=== PATIENT | female | born 1940 | race Caucasian/White ===

== ENCOUNTER → 2020-05-23 11:33 | Outpatient (BNVA) | payer MEDICARE, OTHER, SELFPAY | PROVIDERS: Family Provider Family Medicine; PCP Family Medicine; Referring Provider Obstetrics & Gynecology; Visit Provider Urology | DX: C20 Malignant neoplasm of rectum (principal); N36.2 Urethral caruncle; R33.9 Retention of urine, unspecified; N31.9 Neuromuscular dysfunction of bladder, unspecified | CPT/HCPCS: 80053; 81003 ==

== ENCOUNTER 2020-06-12 14:51 | Outpatient (CLI) | payer MEDICARE, OTHER, SELFPAY ==
--- NOTE | 2020-06-12 15:00 | US_ITS ---
WS: [id number] RENAL ULTRASOUND HISTORY: BLADDER DYSFUNCTION COMPARISON: None available. TECHNIQUE: 2-D and color Doppler imaging of the kidney submitted. Right kidney: 8.7 cm x 5.0 cm x 4.0 cm. Kidney is low normal size. Normal echogenicity. No hydronephrosis or mass. Left kidney: 9.5 cm x 4.7 cm x 3.9 cm. Normal echogenicity with no hydronephrosis or mass. Aorta: Mild atherosclerosis. Scattered plaque with no aneurysm. Urinary Bladder: Nondistended. US/US renal BI* [id number] IMPRESSION: 1. Low normal size RIGHT kidney. 2. No hydronephrosis. 3. Mild atherosclerosis aorta. 4. Urinary bladder not identified.
[2020-06-12 16:47] LABS: Alanine Aminotransferase 10 U/L (0-33); Albumin Level 4.1 g/dL (3.5-5.2); Alkaline Phosphatase 209 IU/L (35-105); Anion Gap 14.6 (5-19); Aspartate Amino Transferase 19 U/L (0-32); Blood Urea Nitrogen 15 mg/dL (8-23); Carbon Dioxide 28 mmol/L (22-29); Chloride 102 mmol/L (98-107); Globulin 2.8 g/dL (1.3-4.6); Glucose 82 mg/dL (65-115); Osmolality Calculated 292 mOsm/kg (285-295); Potassium 3.6 mmol/L (3.5-5.1); Sodium 141 mmol/L (136-145); Total Bilirubin 0.4 mg/dL (0.15-1.2); Total Protein 6.9 g/dL (6.6-8.7)
== END 2020-06-12 14:52 | disposition home or self-care (01) ==
PROVIDERS: PCP Urology; Visit Provider Nurse Practitioner Family
DX: N31.9 Neuromuscular dysfunction of bladder, unspecified (principal); I70.0 Atherosclerosis of aorta
CPT/HCPCS: 36415; 76770; 80053; 81003

== ENCOUNTER 2020-12-11 13:14 | Outpatient (CLI) | payer MEDICARE, OTHER, SELFPAY ==
--- NOTE | 2020-12-11 13:30 | XR_ITS ---
WS: [id number] Temporomandibular joints. HISTORY: RIGHT TM joint blocks. Open and closed mouth imaging of the temporomandibular joints. No fractures or destruction of bone. Mild narrowing of the TM joints bilaterally. Slightly greater na rrowing of the RIGHT TM joint within the anterior osteophyte. There is very mild anterior translation during open mouth imaging of the RIGHT mandibular condyle. Slightly better anterior translation of t he LEFT mandibular condyle during open mouth imaging. Additional multilevel spondylitic changes throughout the cervical spine. XR/[place] [id number] IMPRESSION: 1. Moderate RIGHT AC joint osteoarthritis with mild anterior translation of th e condyle during open mouth imaging. 2. More normal movement of the LEFT mandibular condyle.
--- NOTE | 2020-12-11 13:30 | MR_ITS ---
WS: [id number] MRI TMJ JOINTS without CONTRAST. COMPARISON: None Multiplanar, multisequence imaging is performed without contrast. Moderate narrowing of the LEFT TM joint. There is a hooklike osteophyte extending anteriorly. There i s loss of the normal articular disc with bone upon bone. Very mild anterior translation with open madina th imaging. There is flattening of the femoral head condyle. More normal rounded appearance of the RIGHT mandibular condyle. Very small anterior mandibular condyl e osteophyte with only mild anterior subluxation with open-mouth imaging. No osteonecrosis. MR/MR TMJ wo con [id number] IMPRESSION: 1. Large oblique osteophyte from the LEFT mandibular condyle with no appreciab le articular disc identified. Limited anterior translation with open mouth imag ing. 2. Small RIGHT mandibular condyle osteophyte with limited but more normal ante rior translation with open mouth imaging.
== END 2020-12-11 13:15 | disposition home or self-care (01) ==
PROVIDERS: PCP Urology; Visit Provider Specialist
DX: M26.69 Other specified disorders of temporomandibular joint (principal); M19.09 Primary osteoarthritis, other specified site
CPT/HCPCS: 70330; 70336

== ENCOUNTER 2021-12-15 13:17 | Emergency (ER) | payer MEDICARE, OTHER, SELFPAY ==
[2021-12-15] VITALS (8 sets, daily range): BP systolic 146–196; BP diastolic 69–106; PULSE 68–86; RESP 16–18; TEMP 36.6–36.8; O2SAT 99–100; BMI 18.8
--- NOTE | 2021-12-15 13:29 | XRR_ITS ---
PROCEDURE INFORMATION: Exam: XR Chest Exam date and time: 12/15/2021 1:50 PM Age: 81 years old Clinical indication: Pain; Right-sided; Additional info: Cp TECHNIQUE: Imaging protocol: XR of the chest. Views: 1 view. COMPARISON: CR Chest 1 [place] [id number] 11/02/2018 5:41 AM FINDINGS: Lungs: Emphysematous changes. No consolidation. Pleural spaces: No pleural effusion. No pneumothorax. Heart/Mediastinum: No cardiomegaly. Bones/joints: Visualized osseous structures are intact. XR/XR chest 1V portable [id number] IMPRESSION: Sequela of COPD. No acute findings.
--- NOTE | 2021-12-15 13:30 | ECG_ITS ---
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 Measurements Intervals [place] Rate: 77 P: 50 AR: 115 QRS: -14 QRSD: 90 T: 19 QT: 392 QTc: 445 Interpretive Statements SINUS RHYTHM WITH OCCASIONAL PVCs Compared to ECG 11/02/2018 11:33:26 Sinus bradycardia no longer present ST (T wave) deviation no longer present Electronically Signed On 12-16-2021 8:05:29 CDT by Shaheen Rea M.D. [id number]
--- NOTE | 2021-12-15 13:44 | ED_ITS ---
HPI - Extremity Problem General: Chief complaint: Extremity Injury, Upper Stated complaint: High Blood Pressure, Pain in Right arm Time Seen by Provider: 12/15/21 13:28 Source: patient Mode of arrival: ambulatory Limitations: no limitations History of Present Illness: 81-year-old female states that she woke up this morning with his right neck pain. States she is some tenderness in her right trapezius area and has had some pain down her right arm. She states that she had checked her blood pressure and it was elevated to the 190s she had some mild blurry vision as well she denies any chest pain denies any shortness of breath denies any worsening improving factors did not take any medicines at home. Associated symptoms: Deny chest pain, fever(s) or rash Review of Systems Const: Denies: fever(s), chills, body aches or change in appetite Eyes: Denies: blurry vision or eye discomfort ENMT: Denies: throat pain or dental pain Card: Denies: chest pain Resp: Denies: dyspnea GI: Denies: abdominal pain, nausea, vomiting or diarrhea : Denies: dysuria Musc: Reports: neck pain and extremity pain Skin/Breast: Denies: rash Neuro: Denies: headache(s) Psych: Denies: depression Bar/Lymph: Denies: easy bruising All/Imm: Denies: urticaria PFSH ED PFSH: Medical History (Updated 12/15/21 @ 16:38 by Christopher Moore MD) Graves disease Diagnosed in 2011 and she states that she underwent radioactive iodine treatment and has had no problems since then. No pertinent past medical history Denies diabetes, asthma, hypertension, seizures, DVT/PE PCP: Dr. Deepak Erickson Rectal cancer 2017--states that she underwent surgery x2 with Dr. Gross followed by radiation at [facility]. She finally had everything removed later in 2017 and has a colostomy bag now. Surgical History Status post surgery 2017---underwent surgery for a rectal cyst. She stated that she went through a second surgery to have more of the cyst taken out and was diagnosed with cancer and sent to [place]. The end of 2017 she states that she had a third surgery for part of her colon and she states everything in her pelvis was taken out. Status post tubal ligation At the age of 34 via umbilicus Family History Sister Hypertension x 3 Heart disease Family/Other Hypertension grandson Denies family history of Colon cancer Ovarian cancer Diabetes Hyperlipidemia Breast cancer Uterine cancer Thyroid condition Social History Smoking and tobacco status: never smoked Alcohol intake: never Adopted: No Caregiver/support person: No Lives independently: Yes Marital status: / Current occupational status: employed Physical Exam Const: COMMON NORMALS: no acute distress, patient oriented x3 and healthy appearing HENMT: COMMON NORMALS: normocephalic and atraumatic HEAD & SCALP: normocephalic and atraumatic Eye: COMMON NORMALS: Equal, round and reactive pupils present and EOMs intact bilaterally PUPIL: Yes Equal, round and reactive pupils present Neck/C-Spine: COMMON NORMALS: full ROM and supple OTHER: Tenderness and spasms to right trapezius Chest: COMMONS NORMALS: normal inspection of the chest and normal palpation of entire chest wall Resp: COMMON NORMALS: normal respiratory effort, No retractions, No use of accessory muscles and clear to auscultation bilaterally AUSCULTATION: clear to auscultation bilaterally Cardio: COMMON NORMALS: regular rate, regular rhythm and No murmurs present (Cardio) RATE: regular rate RHYTHM: regular rhythm GI: COMMON NORMALS: Normal to inspection, nondistended, normoactive bowel sounds present, Soft to palpation, non-tender and no masses PALPATION: Yes Soft to palpation Extremity: COMMON NORMALS: normal to inspection and full ROM Neuro: COMMON NORMALS: patient oriented x3, moves all extremities and no focal motor deficits Psych: COMMON NORMALS: mental status grossly normal, Normal thought process present and cooperative THOUGHT PROCESS: Normal thought process present Skin: COMMON NORMALS: no rashes or lesions noted and no wounds GENERAL SKIN EXAM: no rashes or lesions noted Course Vital Signs: Vital signs: Vital Signs Temperature 98.2 F 12/15/21 13:27 Pulse Rate 84 12/15/21 15:30 Respiratory Rate 18 12/15/21 15:30 Blood Pressure 150/73 12/15/21 15:30 Pulse Oximetry 99 12/15/21 15:30 MDM - Extremity (Nontraumatic) Medical Decision Making Patient presents here with neck pain likely muscular in nature she does have a knot in the right neck with muscle spasms feels much improved here after Valium and icing we will place her on Robaxin she is to ice at home her troponins here normal blood pressures improved she has no signs of acute coronary syndrome she is to follow-up with PCP and return if worsening she understands agrees to plan. Lab Data : 12/15/21 13:50 12/15/21 13:50 Radiology Impressions Chest X-Ray 12/15/21 13:29 IMPRESSION: Sequela of COPD. No acute findings. Laboratory Results WBC 3.9 10^3/uL (4.0-10.0) L 12/15/21 13:50 RBC 3.67 10^6/uL (4.1-5.3) L 12/15/21 13:50 Hgb 11.9 g/dL (11.5-15.3) 12/15/21 13:50 Hct 37.9 % (37.0-47.0) 12/15/21 13:50 MCV 103.3 fl (81-99) H 12/15/21 13:50 MCH 32.4 pg (28.0-34.0) 12/15/21 13:50 MCHC 31.4 g/dL (30.0-36.0) 12/15/21 13:50 RDW 13.1 % (12.1-15.1) 12/15/21 13:50 Plt Count 196 10^3/cmm (130-400) 12/15/21 13:50 MPV 10.7 fL (7.4-10.4) H 12/15/21 13:50 Neut % (Auto) 72.9 % 12/15/21 13:50 Lymph % (Auto) 16.3 % 12/15/21 13:50 [place] % (Auto) 9.7 % 12/15/21 13:50 Eos % (Auto) 0.5 % 12/15/21 13:50 Baso % (Auto) 0.3 % 12/15/21 13:50 Neut # (Auto) 2.86 10^3/uL (1.8-7.7) 12/15/21 13:50 Lymph # (Auto) 0.6 10^3/uL (0.8-4.8) L 12/15/21 13:50 [place] # (Auto) 0.4 10^3/uL (0.2-0.9) 12/15/21 13:50 Eos # (Auto) 0.0 10^3/uL (0.0-0.8) 12/15/21 13:50 Baso # (Auto) 0.0 10^3/uL (0.0-0.1) 12/15/21 13:50 Nucleated RBC % (auto) 0 % 12/15/21 13:50 Nucleated RBCs # 0.0 /100WBC 12/15/21 13:50 PT 13.20 SECONDS (12.1-14.9) 12/15/21 14:00 INR 0.97 (0.8-1.2) 12/15/21 14:00 Sodium 137 mmol/L (136-145) 12/15/21 13:50 Potassium 4.7 mmol/L (3.5-5.1) 12/15/21 13:50 Chloride 98 mmol/L (98-107) 12/15/21 13:50 Carbon Dioxide 30 mmol/L (22-29) H 12/15/21 13:50 Anion Gap 13.7 (5-19) 12/15/21 13:50 BUN 11 mg/dL (8-23) 12/15/21 13:50 Creatinine 0.7 mg/dL (0.5-0.9) 12/15/21 13:50 GFR Calculation Not Reportable 12/15/21 13:50 Glucose 103 mg/dL (65-115) 12/15/21 13:50 Calculated Osmolality 284 mOsm/kg (285-295) L 12/15/21 13:50 Calcium 8.6 mg/dL (8.5-10.5) 12/15/21 13:50 Total Bilirubin 0.3 mg/dL (0.15-1.2) 12/15/21 13:50 AST 25 U/L (0-32) 12/15/21 13:50 ALT 11 U/L (0-33) 12/15/21 13:50 Alkaline Phosphatase 185 IU/L (35-105) H 12/15/21 13:50 Troponin T Baseline 12 ng/L (0-10) H 12/15/21 13:50 Troponin T 120 Minute 12.20 ng/L (0-10) H 12/15/21 15:30 Delta Troponin T 0.20 ABS# (0-10) 12/15/21 15:30 Total Protein 7.6 g/dL (6.6-8.7) 12/15/21 13:50 Albumin 4.0 g/dL (3.5-5.2) 12/15/21 13:50 Globulin 3.6 g/dL (1.3-4.6) 12/15/21 13:50 EKG Data EKG 1: I personally reviewed and interpreted this EKG as follows: EKG interpretation date: 12/15/21 EKG interpretation time: 13:43 Interpretation: nsr hr [address] or t wave abnormalities qrs 90 qtc 424 EKG 2: I personally reviewed and interpreted this EKG as follows: EKG interpretation date: 12/15/21 EKG interpretation time: 16:14 Interpretation: nsr hr [address] or t wave abnormalities qrs 88 qtc 422 Discharge Plan Discharge Patient Disposition: Home Clinical Impression: Neck pain on right side, Hypertension Condition: Stable Prescriptions: New methocarbamol 750 mg tablet 750 mg PO Q6H PRN (Reason: spasms) Qty: 20 0RF Naprosyn 500 mg tablet 500 mg PO BID PRN (Reason: pain) Qty: 20 0RF Discharge Orders: Discharge ED (Routine); Ordered 12/15/21 Ordered By: Christopher Moore Referrals: Jonnie Rosado MD [Primary Care Provider] - Discharge Diet: Advance as tolerated Discharge Activity: Resume usual activity Patient Instructions: Muscle Spasm (ED), Neck Pain (ED) Coding Level of Care Code ED Bobbin Fixer for Chg Fwd Exam Comprehensive
[2021-12-15] MEDS: morphine 4 mg/mL SDV 1 mL IVP (13:54)
[2021-12-15] MEDS: ondansetron 2 mg/ML SDV 2 mL 4 MG IVP (13:54)
[2021-12-15] MEDS: hyDRALAzine 20 mg/mL INJ 1 mL 10 MG IVP (13:55)
[2021-12-15 14:00] LABS: Basophils % 0.3 %; Eosinophils % 0.5 %; Hematocrit 37.9 % (37.0-47.0); Hemoglobin 11.9 g/dL (11.5-15.3); Lymphocytes # 0.6 10^3/uL (0.8-4.8); Lymphocytes % 16.3 %; Mean Corpuscular HGB Conc 31.4 g/dL (30.0-36.0); Mean Corpuscular Hemoglobin 32.4 pg (28.0-34.0); Mean Corpuscular Volume 103.3 fl (81-99); Mean Platelet Volume 10.7 fL (7.4-10.4); Monocytes # 0.4 10^3/uL (0.2-0.9); Monocytes % 9.7 %; Neutrophils # 2.86 10^3/uL (1.8-7.7); Neutrophils % 72.9 %; Nucleated Red Blood Cells % 0 %; Platelet Count 196 10^3/cmm (130-400); Red Blood Count 3.67 10^6/uL (4.1-5.3); Red Cell Distribution Width 13.1 % (12.1-15.1); White Blood Count 3.9 10^3/uL (4.0-10.0)
[2021-12-15 14:25] LABS: Alkaline Phosphatase 185 IU/L (35-105); Blood Urea Nitrogen 11 mg/dL (8-23); Calcium 8.6 mg/dL (8.5-10.5); Carbon Dioxide 30 mmol/L (22-29); Chloride 98 mmol/L (98-107); Globulin 3.6 g/dL (1.3-4.6); Glucose 103 mg/dL (65-115); Osmolality Calculated 284 mOsm/kg (285-295); Sodium 137 mmol/L (136-145); Total Bilirubin 0.3 mg/dL (0.15-1.2); Total Protein 7.6 g/dL (6.6-8.7)
[2021-12-15 14:27] LABS: Anion Gap 13.7 (5-19)
[2021-12-15 14:28] LABS: Alanine Aminotransferase 11 U/L (0-33); Aspartate Amino Transferase 25 U/L (0-32); Potassium 4.7 mmol/L (3.5-5.1)
[2021-12-15 14:32] LABS: INR 0.97 (0.8-1.2)
[2021-12-15 14:43] LABS: Troponin(5th) Baseline 12 ng/L (0-10)
[2021-12-15] MEDS: diazePAM 2 mg Tablet PO (15:09)
--- NOTE | 2021-12-15 15:30 | ECG_ITS ---
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 Measurements Intervals [place] Rate: 82 P: 52 AK: 103 QRS: 14 QRSD: 88 T: 27 QT: 383 QTc: 449 Interpretive Statements SINUS RHYTHM WITH SHORT AK INTERVAL MODERATE ST DEPRESSION [0.05+ mV ST DEPRESSION] Compared to ECG 12/15/2021 13:43:19 Short AK interval now present ST (T wave) deviation now present Electronically Signed On 12-16-2021 8:06:22 CDT by Shaheen Rea M.D. [id number]
--- NOTE | 2021-12-15 15:33 | PC.NURSE ---
Ice pack to R shoulder
== END 2021-12-15 16:53 | disposition home or self-care (01) ==
PROVIDERS: Emergency Provider Emergency Medicine; PCP Urology
DX: M54.2 Cervicalgia (principal); I10 Essential (primary) hypertension; M79.601 Pain in right arm
CPT/HCPCS: 71045; 80053; 84484; 85025; 85610; 93005; 96374; 96375; 99285; J0360; J2270; J2405

== ENCOUNTER 2022-03-04 11:42 | Outpatient (CLI) | payer MEDICARE, OTHER, SELFPAY ==
--- NOTE | 2022-03-04 11:54 | CT_ITS ---
WS: [id number] CT CHEST, ABDOMEN AND PELVIS WITH CONTRAST. HISTORY: COUGH/ABNORMAL WEIGHT LOSS/RECTAL CANCER TECHNIQUE: Contiguous 5 mm axial imaging performed through the chest, abdomen and pelvis with IV cont rast, oral contrast has been provided. Coronal and sagittal reformats chest. Coronal and sagittal ref ormats through the abdomen and pelvis. All CT scans at [facility] use at least one of these d ose optimization techniques: automated exposure control; mA and/or kV adjustment per patient size (in cludes targeted exams where dose is matched to clinical indication); or iterative reconstruction. CONTRAST: Omnipaque 350; 75 mL IV. DLP: 1015.37 mGy.cm COMPARISON: 04/29/[address]: Linear atelectasis or scar RIGHT upper lobe. Ovoid 5 mm nodule in the RIGHT lower lobe. Thi s was probably present on the PET/CT from 2016. No mass. No pericardial or pleural effusions. Mild bi atrial enlargement. Atherosclerosis aorta. Normal size pulmonary artery. Increasing mediastinal and h ilar lymph nodes. RIGHT hilar lymph node or cluster of lymph nodes measures 16 x 13 mm. Subcarinal ly mph node with a maximum diameter of 13 mm. Smaller hilar lymph nodes. Intralobular RIGHT lower lobe l ymph nodes are mildly enlarged. No central pulmonary emboli. Abdomen CT: Liver is normal size. Low-attenuation mass in the LEFT lobe liver measures 2.0 x 2.1 cm a nd was not present on the prior study. No additional masses. Normal portal vein. Gallbladder is negat steven. Normal size spleen with granulomata. Negative pancreas. No adrenal mass. Neither kidney is obstr ucted. No renal mass. Atherosclerotic plaque throughout the aorta. Minimally distended stomach with contrast. No small bowel obstruction. Diffuse colonic retention. Ove rlapping loops of colon. LEFT lower quadrant colostomy. Pelvic CT: Well-distended urinary bladder. No adenopathy. Advanced degenerative changes within the thoracic and lumbar spines. No osteoblastic or osteolytic miracle ne disease is identified. CT/CT chest abd pel w con* IMPRESSION: 1. Hilar and subcarinal lymphadenopathy. Metastatic disease not excluded. 2. RIGHT lower lobe 5 mm nodule was probably present on the prior PET/CT. 3. LEFT lower quadrant colostomy. 4. New low-attenuation nodule LEFT lobe of the liver measures 2.0 x 2.1 cm. As this was not present in 2017 this is most likely a metastatic lesion. 5. Recommend follow-up PET/CT imaging to better evaluate the enlarged lymph no bebeto in the chest and the liver lesion.
[2022-03-04] MEDS: barium sulfate 450 mL Oral Susp PO (12:30)
[2022-03-04 13:39] LABS: Blood Urea Nitrogen 14 mg/dL (8-23)
[2022-03-04] MEDS: iohexol 350 mg/mL 100 mL Btl IV (13:46)
== END 2022-03-04 11:43 | disposition home or self-care (01) ==
LOC: RAD 11:43
PROVIDERS: PCP Urology; Visit Provider Family Medicine
DX: R05.9 Cough, unspecified (principal); R63.4 Abnormal weight loss; C20 Malignant neoplasm of rectum; R91.1 Solitary pulmonary nodule; Z93.3 Colostomy status
CPT/HCPCS: 71260; 74177; 82565; 84520

== ENCOUNTER 2022-04-22 12:28 | Oncology outpatient (recurring) (ONCR) | payer MEDICARE, OTHER, SELFPAY ==
[2022-04-09 09:42] LABS: Basophils % 0.3 %; Hematocrit 38.3 % (37.0-47.0); Hemoglobin 12.1 g/dL (11.5-15.3); Lymphocytes # 0.7 10^3/uL (0.8-4.8); Lymphocytes % 23.6 %; Mean Corpuscular HGB Conc 31.6 g/dL (30.0-36.0); Mean Corpuscular Hemoglobin 31.7 pg (28.0-34.0); Mean Corpuscular Volume 100.3 fl (81-99); Mean Platelet Volume 10.7 fL (7.4-10.4); Monocytes # 0.3 10^3/uL (0.2-0.9); Monocytes % 11.5 %; Neutrophils # 1.87 10^3/uL (1.8-7.7); Neutrophils % 63.3 %; Nucleated Red Blood Cells % 0 %; Platelet Count 174 10^3/cmm (130-400); Red Blood Count 3.82 10^6/uL (4.1-5.3); Red Cell Distribution Width 14.6 % (12.1-15.1)
[2022-04-09 10:21] LABS: Alanine Aminotransferase 9 U/L (0-33); Albumin Level 4.2 g/dL (3.5-5.2); Alkaline Phosphatase 213 U/L (35-105); Anion Gap 13.7 (5-19); Aspartate Amino Transferase 20 U/L (0-32); Blood Urea Nitrogen 13 mg/dL (8-23); Calcium 9.6 mg/dL (8.5-10.5); Carbon Dioxide 30 mmol/L (22-29); Chloride 101 mmol/L (98-107); Globulin 3.3 g/dL (1.3-4.6); Glucose 92 mg/dL (65-115); Osmolality Calculated 290 mOsm/kg (285-295); Potassium 4.7 mmol/L (3.5-5.1); Sodium 140 mmol/L (136-145); Thyroid Stimulating Hormone 1.17 uIU/mL (0.27-4.20); Total Bilirubin 0.6 mg/dL (0.15-1.2); Total Protein 7.5 g/dL (6.6-8.7)
--- NOTE | 2022-04-16 10:11 | N.ONRAD NP_ITS ---
Radiation Oncology Consultation Patient Name: Marisol Reddy Date of : 1940 Date of Service: 04/16/2022 Attending Physician: Travis Black M.D. Marisol Reddy was seen in consultation this morning at the request of Santi Jarquin M.D. for consideration of stereotactic ablative body radiotherapy and the management of metastatic rectal cancer. 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 Definitive chemoradiotherapy consisting of mitomycin and Xeloda and pelvic radiotherapy to a cumulative dose of 55.8 Gy was prescribed between the dates of November 29, 2015 through January 02, 2016. A colonoscopy completed on account of anal pain in January 2017 identified an abscess with biopsies confirming adenocarcinoma. An abdominoperineal resection with en bloc partial vaginectomy and colostomy was performed by Yousuf Barnes M.D. A thoracoabdominopelvic CT scan ordered on March 04, 2022 in consideration of a cough and weight loss described a 5 mm right lower lobe nodule, right hilar lymphadenopathy measuring 1.6 cm x 1.3 cm, a 1.3 cm subcarinal lymph node, and a 2 cm x 2.1 cm low-attenuation mass in the left lobe of the liver. A CT-guided needle biopsy of the liver mass obtained on March 26, 2022 confirmed metastatic adenocarcinoma consistent with colorectal primary. A PET scan requested on April 05, 2022 revealed a single foci of hypermetabolic activity within the left hepatic lobe (SUV 13.7). The patient was evaluated for stereotactic ablative body radiotherapy for the hepatic metastasis. I discussed with Ms. Reddy the role of stereotactic ablative body radiotherapy for the management of recurrent lung cancer. I also reviewed the SABR-COMET trial that enrolled patients with a controlled primary malignancy and 1-5 metastatic lesions to SBRT or palliative standard of care. This radiotherapy modality provided a 22-month median overall survival benefit in comparison to palliative management. I anticipate an ultra-hypofractionated course of stereotactic radiotherapy. A 4-dimensional computed tomographic radiotherapy planning will be acquired to delineate the gross tumor volume preceding implementation of treatment. Potential toxicities of stereotactic body radiotherapy to the liver were reviewed. The patient has verbalized understanding and would like to proceed as recommended. Her medical treatment plan was discussed with Santi Jarquin M.D. Signed by: Dr. Travis Black 04/16/2022 10:10:48 AM
--- NOTE | 2022-04-22 | CT_ITS ---
Radiation Therapy Planning CT images; total exam DLP: 847.29 mGy-cm MTDD
[2022-04-22] MEDS: iodixanol 320 mg/mL 100mL Btl (RAD THERAPY ONLY) IV (12:36)
== END 2022-04-25 23:59 | disposition home or self-care (01) ==
PROVIDERS: Internal Medicine Hematology & Oncology; PCP Urology; Visit Provider Radiology Radiation Oncology
DX: Z51.0 Encounter for antineoplastic radiation therapy (principal); C20 Malignant neoplasm of rectum; C78.01 Secondary malignant neoplasm of right lung; C77.8 Secondary and unspecified malignant neoplasm of lymph nodes of multiple regions; C78.7 Secondary malignant neoplasm of liver and intrahepatic bile duct
CPT/HCPCS: 36415; 77300; 77301; 77334; 77338; 77470; 80053; 84443; 85025; 99204; 99205; Q9967

== ENCOUNTER 2022-05-02 11:51 | Oncology outpatient (recurring) (ONCR) | payer MEDICARE, OTHER, SELFPAY ==
--- NOTE | 2022-04-30 15:05 | ONCRAD TMN_ITS ---
SABR Treatment Management Note Patient Name: Marisol Reddy Date of : 1940 Date of Service: 04/30/2022 Attending Physician: Travis Black M.D. Marisol Reddy is an 81 year-old white female diagnosed with metastatic rectal cancer. 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 Definitive chemoradiotherapy consisting of mitomycin and Xeloda and pelvic radiotherapy to a cumulative dose of 55.8 Gy was prescribed between the dates of November 29, 2015 through January 02, 2016. A colonoscopy completed on account of anal pain in January 2017 identified an abscess with biopsies confirming adenocarcinoma. An abdominoperineal resection with en bloc partial vaginectomy and colostomy was performed by Yousuf Barnes M.D. A thoracoabdominopelvic CT scan ordered on March 04, 2022 in consideration of a cough and weight loss described a 5 mm right lower lobe nodule, right hilar lymphadenopathy measuring 1.6 cm x 1.3 cm, a 1.3 cm subcarinal lymph node, and a 2 cm x 2.1 cm low-attenuation mass in the left lobe of the liver. A CT-guided needle biopsy of the liver mass obtained on March 26, 2022 confirmed metastatic adenocarcinoma consistent with colorectal primary. A PET scan requested on April 05, 2022 revealed a single foci of hypermetabolic activity within the left hepatic lobe (SUV 13.7). The patient has received 40 Gy of a prescribed 60 Virgen (SABR) delivered with an intensity modulated radiotherapy plan utilizing a step and shoot treatment technique. Upon review of systems, she described pain during deep inspiration. On physical examination, the patient weighed 105 lbs. Her temperature was 97.4 ???F and the blood pressure was 151/76 mmHg. The pulse was 59 bpm and her respiratory rate was 18. There was no erythema within the treatment russell. Continue stereotactic ablative body radiotherapy as prescribed. Recommend NSAID for probable costochondritis related to SABR. Signed by: Dr. Travis Black 04/30/2022 3:04:02 PM
[2022-05-01 13:27] LABS: Basophils % 0.4 %; Eosinophils % 0.9 %; Hematocrit 36.2 % (37.0-47.0); Hemoglobin 11.3 g/dL (11.5-15.3); Lymphocytes # 0.5 10^3/uL (0.8-4.8); Lymphocytes % 22.3 %; Mean Corpuscular HGB Conc 31.2 g/dL (30.0-36.0); Mean Corpuscular Hemoglobin 31.9 pg (28.0-34.0); Mean Corpuscular Volume 102.3 fl (81-99); Mean Platelet Volume 10.7 fL (7.4-10.4); Monocytes # 0.3 10^3/uL (0.2-0.9); Monocytes % 11.8 %; Neutrophils # 1.47 10^3/uL (1.8-7.7); Neutrophils % 64.2 %; Nucleated Red Blood Cells % 0 %; Platelet Count 141 10^3/cmm (130-400); Red Blood Count 3.54 10^6/uL (4.1-5.3); Red Cell Distribution Width 14.6 % (12.1-15.1); White Blood Count 2.3 10^3/uL (4.0-10.0)
[2022-05-01 13:48] LABS: Alanine Aminotransferase 10 U/L (0-33); Albumin Level 3.9 g/dL (3.5-5.2); Alkaline Phosphatase 191 U/L (35-105); Anion Gap 10.9 (5-19); Aspartate Amino Transferase 19 U/L (0-32); Blood Urea Nitrogen 17 mg/dL (8-23); Calcium 9.2 mg/dL (8.5-10.5); Carbon Dioxide 29 mmol/L (22-29); Chloride 104 mmol/L (98-107); Globulin 3.3 g/dL (1.3-4.6); Glucose 113 mg/dL (65-115); Osmolality Calculated 292 mOsm/kg (285-295); Potassium 3.9 mmol/L (3.5-5.1); Sodium 140 mmol/L (136-145); Total Bilirubin 0.5 mg/dL (0.15-1.2); Total Protein 7.2 g/dL (6.6-8.7)
--- NOTE | 2022-05-02 11:57 | N.ONRD TS_ITS ---
SABR Treatment Summary Patient Name: Marisol Reddy Date of : 1940 Date of Service: 05/02/2022 Attending Physician: Travis Black M.D. Marisol Reddy has completed stereotactic ablative body radiotherapy for the management of metastatic rectal cancer. 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 Definitive chemoradiotherapy consisting of mitomycin and Xeloda and pelvic radiotherapy to a cumulative dose of 55.8 Gy was prescribed between the dates of November 29, 2015 through January 02, 2016. A colonoscopy completed on account of anal pain in January 2017 identified an abscess with biopsies confirming adenocarcinoma. An abdominoperineal resection with en bloc partial vaginectomy and colostomy was performed by Yousuf Barnes M.D. A thoracoabdominopelvic CT scan ordered on March 04, 2022 in consideration of a cough and weight loss described a 5 mm right lower lobe nodule, right hilar lymphadenopathy measuring 1.6 cm x 1.3 cm, a 1.3 cm subcarinal lymph node, and a 2 cm x 2.1 cm low-attenuation mass in the left lobe of the liver. A CT-guided needle biopsy of the liver mass obtained on March 26, 2022 confirmed metastatic adenocarcinoma consistent with colorectal primary. A PET scan requested on April 05, 2022 revealed a single foci of hypermetabolic activity within the left hepatic lobe (SUV 13.7). SABR was delivered between the dates of April 28, 2022 through May 02, 2022. A prescribed dose of 60 Gy was delivered in three fractions encompassing 5 elapsed days. The left liver lobe lesion was treated utilizing an intensity modulated radiotherapy plan with a step and shoot treatment technique. The plan required seven co-planar russell and two non-coplanar ports. The coplanar russell were designed using gantry angles of 0???, 20???, 40???, 60???, 300???, 320???, and 340??? and were associated with a collimator rotation of 0???. The field sizes spanned between 5.3 cm x 6.3 cm to 6.1 cm x 5.5 cm. The planned SSD measured between a minimum of 87.1 cm to a maximum of 92.1 cm. The delivered monitor units for the referenced gantry angles were 444 MU, 761 MU, 624 MU, 789 MU, 1018 MU, 766 MU, and 756 MU, An additional two non-coplanar ports were arranged with gantry angles of 25??? and 335??? and a collimator rotation of 0???. The couch angle was 90???. The non-coplanar portal russell measured 6.8 cm x 5 cm and 7.1 cm x 5 cm with SSD measurements of 95.5 cm and 95.6 cm. The non-coplanar ports administered 686 MU and 624 MU. Low energy photons were prescribed. All treatments were performed with the [employer] linear accelerator and an isocentric technique. The dose was calculated by Anisotropic Analytic Algorithm with the plan normalized to deliver 100% of the prescription dose to 95% of the planning target volume. Signed by: Dr. Travis Black 05/02/2022 11:55:40 AM
== END 2022-05-26 23:59 | disposition home or self-care (01) ==
PROVIDERS: Internal Medicine Hematology & Oncology; PCP Urology; Visit Provider Radiology Radiation Oncology
DX: Z51.0 Encounter for antineoplastic radiation therapy (principal); C20 Malignant neoplasm of rectum; C78.7 Secondary malignant neoplasm of liver and intrahepatic bile duct
CPT/HCPCS: 36415; 77373; 77435; 80053; 85025; 99214

== ENCOUNTER 2022-06-21 17:31 | Emergency (ER) | payer MEDICARE, OTHER, SELFPAY ==
[2022-06-21 18:03] VITALS: BP 180/78; PULSE 55; RESP 18; TEMP 36.4; O2SAT 97
[2022-06-21 18:53] LABS: Basophils % 0.4 %; Hematocrit 38.6 % (37.0-47.0); Hemoglobin 12.3 g/dL (11.5-15.3); Lymphocytes # 0.4 10^3/uL (0.8-4.8); Lymphocytes % 8.7 %; Mean Corpuscular HGB Conc 31.9 g/dL (30.0-36.0); Mean Corpuscular Hemoglobin 32.9 pg (28.0-34.0); Mean Corpuscular Volume 103.2 fl (81-99); Mean Platelet Volume 10.7 fL (7.4-10.4); Monocytes # 0.4 10^3/uL (0.2-0.9); Monocytes % 7.9 %; Neutrophils # 4.17 10^3/uL (1.8-7.7); Neutrophils % 82.4 %; Nucleated Red Blood Cells % 0 %; Platelet Count 146 10^3/cmm (130-400); Red Blood Count 3.74 10^6/uL (4.1-5.3); Red Cell Distribution Width 13.7 % (12.1-15.1); White Blood Count 5.1 10^3/uL (4.0-10.0)
[2022-06-21 19:17] LABS: Alanine Aminotransferase 17 U/L (0-33); Albumin Level 4.1 g/dL (3.5-5.2); Alkaline Phosphatase 220 U/L (35-105); Anion Gap 15.1 (5-19); Aspartate Amino Transferase 28 U/L (0-32); Blood Urea Nitrogen 14 mg/dL (8-23); Calcium 9.6 mg/dL (8.5-10.5); Carbon Dioxide 26 mmol/L (22-29); Chloride 94 mmol/L (98-107); Globulin 3.8 g/dL (1.3-4.6); Glucose 149 mg/dL (65-115); Lipase 37 U/L (13-60); Osmolality Calculated 275 mOsm/kg (285-295); Potassium 4.1 mmol/L (3.5-5.1); Sodium 131 mmol/L (136-145); Total Bilirubin 0.5 mg/dL (0.15-1.2); Total Protein 7.9 g/dL (6.6-8.7)
[2022-06-21 19:19] LABS: Lactate (Lactic Acid level) 1.3 mmol/L (0.5-2.2)
--- NOTE | 2022-06-21 19:59 | CTR_ITS ---
PROCEDURE INFORMATION: Exam: CT Abdomen And Pelvis With Contrast Exam date and time: 06/21/2022 8:59 PM Age: 81 years old Clinical indication: Abdominal pain; Generalized; Prior surgery; Surgery date: 6+ months; Surgery type: Colostomy for rectal CA. Just finished radiation for liver mets per PT; Patient HX: Colorectal CA with livermets per PT; Additional info: Abd pain TECHNIQUE: Imaging protocol: Computed tomography of the abdomen and pelvis with contrast. Radiation optimization: All CT scans at this facility use at least one of these dose optimization techniques: automated exposure control; mA and/or kV adjustment per patient size (includes targeted exams where dose is matched to clinical indication); or iterative reconstruction. Contrast material: OMNI 350; Contrast volume: 70 ml; Contrast route: INTRAVENOUS (IV); COMPARISON: CT chest abd pel w con* 03/04/2022 1:40 PM RADIATION DOSE METRICS: Total DLP (mGy-cm): 296.92 FINDINGS: Lungs: Scarring and/or atelectasis in the medial segment of the right middle lobe. Bibasilar discoid atelectasis and/or scarring. Heart: Severe aortic valve calcification. Liver: Decreased size of 1.5 cm low-density in the medial segment left liver consistent with decreased size of liver metastasis. Gallbladder and bile ducts: Normal. No calcified stones. No ductal dilation. Pancreas: Normal. No ductal dilation. Spleen: Calcified splenic granulomas. Stable one or more accessory splenules. Adrenal glands: Normal. No mass. Kidneys and ureters: Left renal hypodensity measuring < 1.0 cm , too small to further characterize. Stomach and bowel: Stable resection of the rectosigmoid colon with continued left lower quadrant colostomy. Multiple dilated loops of small bowel in the pelvis up to 3 cm in diameter consistent with enteritis versus ileus versus occult obstruction with no obvious transition point. Appendix: No evidence of appendicitis. Intraperitoneal space: Unremarkable. No free air. No significant fluid collection. Vasculature: Calcification of the abdominal aorta and/or iliac arteries consistent with atherosclerotic vessel disease. Lymph nodes: Calcified right hilar nodes and/or mediastinal nodes and/or lung granulomas consistent with old granulomatous disease. Urinary bladder: Unremarkable as visualized. Reproductive: Unremarkable as visualized. Bones/joints: Unremarkable. No acute fracture. Soft tissues: Unremarkable. CT/CT abdomen pelvis w con* [id number] IMPRESSION: 1. Decreased size of 1.5 cm low-density in the medial segment left liver consistent with decreased size of liver metastasis. 2. Stable resection of the rectosigmoid colon with continued left lower quadrant colostomy. 3. Multiple dilated loops of small bowel in the pelvis up to 3 cm in diameter consistent with enteritis versus ileus versus occult obstruction with no obvious transition point.
[2022-06-21 20:01] VITALS: BP 188/79; PULSE 55; RESP 16; O2SAT 100
--- NOTE | 2022-06-21 20:10 | ECG_ITS ---
[facility] Test Date: 2022-06-21 Pat Name: Marisol Reddy Department: Room: Gender: Female [employer]: : 1940 Requested By: Christopher Moore Order Number: [id number] Brian MD: Sunny Mera M.D. 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 [email or web address]
--- NOTE | 2022-06-21 20:11 | ED_ITS ---
HPI - Abdominal Pain General: Chief Complaint: Abdominal Pain Stated Complaint: has cancer and stomach is hurting Time Seen by Provider: 06/21/22 19:50 Source: patient Mode of arrival: ambulatory Limitations: no limitations History of Present Illness: 81-year-old female states she has been having diffuse abdominal pain over the last week. She states the pain is been sharp in nature she rates today 7 out of 10 she denies any vomiting denies any diarrhea. She denies any radiation of pain denies any chest pain she had no fevers no diarrhea. Associated Symptoms: Reports nausea; Denies chills, dysuria and fever(s) Review of Systems Const: Denies: fever(s), chills, body aches or change in appetite Eyes: Denies: blurry vision or eye discomfort ENMT: Denies: throat pain or dental pain Card: Denies: chest pain Resp: Denies: dyspnea GI: Reports: abdominal pain and nausea : Denies: dysuria Musc: Denies: neck pain or back pain Skin/Breast: Denies: rash Neuro: Denies: headache(s) Psych: Denies: depression Bar/Lymph: Denies: easy bruising All/Imm: Denies: urticaria PFSH ED PFSH: Medical History Graves disease Diagnosed in 2011 and she states that she underwent radioactive iodine treatment and has had no problems since then. No pertinent past medical history Denies diabetes, asthma, hypertension, seizures, DVT/PE PCP: Dr. Deepak Erickson Rectal cancer 2017--states that she underwent surgery x2 with Dr. Gross followed by radiation at [facility]. She finally had everything removed later in 2017 and has a colostomy bag now. Surgical History Status post surgery 2017---underwent surgery for a rectal cyst. She stated that she went through a second surgery to have more of the cyst taken out and was diagnosed with cancer and sent to [place]. The end of 2017 she states that she had a third surgery for part of her colon and she states everything in her pelvis was taken out. Status post tubal ligation At the age of 34 via umbilicus Family History Sister Hypertension x 3 Heart disease Family/Other Hypertension grandson Denies family history of Colon cancer Ovarian cancer Diabetes Hyperlipidemia Breast cancer Uterine cancer Thyroid condition Social History Smoking and tobacco status: never smoked Alcohol intake: never Adopted: No Caregiver/support person: No Lives independently: Yes Marital status: / Current occupational status: employed Physical Exam Const: COMMON NORMALS: no acute distress, patient oriented x3 and healthy appearing HENMT: COMMON NORMALS: normocephalic and atraumatic HEAD & SCALP: normocephalic and atraumatic Eye: COMMON NORMALS: Equal, round and reactive pupils present and EOMs intact bilaterally PUPIL: Yes Equal, round and reactive pupils present Neck/C-Spine: COMMON NORMALS: full ROM and supple Chest: COMMONS NORMALS: normal inspection of the chest and normal palpation of entire chest wall Resp: COMMON NORMALS: normal respiratory effort, No retractions, No use of accessory muscles and clear to auscultation bilaterally AUSCULTATION: clear to auscultation bilaterally Cardio: COMMON NORMALS: regular rate, regular rhythm and No murmurs present (Cardio) RATE: regular rate RHYTHM: regular rhythm GI: COMMON NORMALS: Normal to inspection, nondistended, normoactive bowel sounds present, Soft to palpation and no masses PALPATION: Yes Soft to palpation OTHER: diffuse tenderness Extremity: COMMON NORMALS: normal to inspection and full ROM Neuro: COMMON NORMALS: patient oriented x3, moves all extremities and no focal motor deficits Psych: COMMON NORMALS: mental status grossly normal, Normal thought process present and cooperative THOUGHT PROCESS: Normal thought process present Skin: COMMON NORMALS: no rashes or lesions noted and no wounds GENERAL SKIN EXAM: no rashes or lesions noted Course Vital Signs: Vital signs: Vital Signs Temperature 97.5 F L 06/21/22 18:03 Pulse Rate 68 06/21/22 21:30 Respiratory Rate 16 06/21/22 21:30 Blood Pressure 155/68 06/21/22 21:30 Pulse Oximetry 96 06/21/22 21:30 Oxygen Delivery Me thod 06/21/22 18:03 MDM - Abdominal Pain Medical Decision Making Patient presents with abdominal pain she feels much improved here exam at discharge benign blood works normal CT is normal she has no signs of small bowel obstruction we will prescribe her pain meds along with nausea medicine. Lab Data 06/21/22 18:40 06/21/22 18:40 Labs/Radiology: Radiology Impressions Abdomen/Pelvis CT 06/21/22 19:59 IMPRESSION: 1. Decreased size of 1.5 cm low-density in the medial segment left liver consistent with decreased size of liver metastasis. 2. Stable resection of the rectosigmoid colon with continued left lower quadrant colostomy. 3. Multiple dilated loops of small bowel in the pelvis up to 3 cm in diameter consistent with enteritis versus ileus versus occult obstruction with no obvious transition point. Laboratory Results WBC 5.1 10^3/uL (4.0-10.0) 06/21/22 18:40 RBC 3.74 10^6/uL (4.1-5.3) L 06/21/22 18:40 Hgb 12.3 g/dL (11.5-15.3) 06/21/22 18:40 Hct 38.6 % (37.0-47.0) 06/21/22 18:40 MCV 103.2 fl (81-99) H 06/21/22 18:40 MCH 32.9 pg (28.0-34.0) 06/21/22 18:40 MCHC 31.9 g/dL (30.0-36.0) 06/21/22 18:40 RDW 13.7 % (12.1-15.1) 06/21/22 18:40 Plt Count 146 10^3/cmm (130-400) 06/21/22 18:40 MPV 10.7 fL (7.4-10.4) H 06/21/22 18:40 Neut % (Auto) 82.4 % 06/21/22 18:40 Lymph % (Auto) 8.7 % 06/21/22 18:40 [place] % (Auto) 7.9 % 06/21/22 18:40 Eos % (Auto) 0.0 % 06/21/22 18:40 Baso % (Auto) 0.4 % 06/21/22 18:40 Neut # (Auto) 4.17 10^3/uL (1.8-7.7) 06/21/22 18:40 Lymph # (Auto) 0.4 10^3/uL (0.8-4.8) L 06/21/22 18:40 [place] # (Auto) 0.4 10^3/uL (0.2-0.9) 06/21/22 18:40 Eos # (Auto) 0.0 10^3/uL (0.0-0.8) 06/21/22 18:40 Baso # (Auto) 0.0 10^3/uL (0.0-0.1) 06/21/22 18:40 Nucleated RBC % (auto) 0 % 06/21/22 18:40 Nucleated RBCs # 0.0 /100WBC 06/21/22 18:40 Sodium 131 mmol/L (136-145) L 06/21/22 18:40 Potassium 4.1 mmol/L (3.5-5.1) 06/21/22 18:40 Chloride 94 mmol/L (98-107) L 06/21/22 18:40 Carbon Dioxide 26 mmol/L (22-29) 06/21/22 18:40 Anion Gap 15.1 (5-19) 06/21/22 18:40 BUN 14 mg/dL (8-23) 06/21/22 18:40 Creatinine 0.7 mg/dL (0.5-0.9) 06/21/22 18:40 GFR Calculation Not Reportable 06/21/22 18:40 Glucose 149 mg/dL (65-115) H 06/21/22 18:40 Calculated Osmolality 275 mOsm/kg (285-295) L 06/21/22 18:40 Lactate 1.3 mmol/L (0.5-2.2) 06/21/22 18:40 Calcium 9.6 mg/dL (8.5-10.5) 06/21/22 18:40 Total Bilirubin 0.5 mg/dL (0.15-1.2) 06/21/22 18:40 AST 28 U/L (0-32) 06/21/22 18:40 ALT 17 U/L (0-33) 06/21/22 18:40 Alkaline Phosphatase 220 U/L (35-105) H 06/21/22 18:40 Total Protein 7.9 g/dL (6.6-8.7) 06/21/22 18:40 Albumin 4.1 g/dL (3.5-5.2) 06/21/22 18:40 Globulin 3.8 g/dL (1.3-4.6) 06/21/22 18:40 Lipase 37 U/L (13-60) 06/21/22 18:40 Discharge Plan Discharge Patient Disposition: Home Clinical Impression: Abdominal pain Qualifiers: Abdominal location: generalized Qualified Code(s): R10.84 - Generalized abdominal pain Condition: Stable Prescriptions: New hydrocodone-acetaminophen 5-325 mg tablet 1 tab PO Q6H PRN (Reason: pain) Qty: 14 0RF ondansetron 4 mg tablet,disintegrating 4 mg PO Q6H PRN (Reason: nausea and vomiting) Qty: 14 0RF Discharge Orders: Discharge ED (Routine); Ordered 06/21/22 Ordered By: Christopher Moore Referrals: Jonnie Rosado MD [Primary Care Provider] - Discharge Diet: Advance as tolerated Discharge Activity: Resume usual activity Patient Instructions: Abdominal Pain (ED) Coding Level of Care Code ED Senior Technical Specialist for Chg Fwd Exam Comprehensive
[2022-06-21 20:30] VITALS: BP 187/89; PULSE 66; RESP 16; O2SAT 99
[2022-06-21] MEDS: sodium chloride 0.9% 1,000 ML 999 ML IV (20:38)
[2022-06-21] MEDS: morphine 4 mg/mL SDV 1 mL IVP (20:38)
[2022-06-21] MEDS: ondansetron 2 mg/ML SDV 2 mL 4 MG IVP (20:38)
[2022-06-21 21:10] VITALS: BP 172/90; PULSE 67; RESP 16; O2SAT 97
[2022-06-21] MEDS: iohexol 350 mg/mL 500 mL Btl (per mL) IV (21:13)
[2022-06-21 21:30] VITALS: BP 155/68; PULSE 66; PULSE 68; RESP 16; O2SAT 96; O2SAT 97
== END 2022-06-21 22:03 | disposition home or self-care (01) ==
PROVIDERS: Emergency Provider Emergency Medicine; PCP Urology
DX: R10.84 Generalized abdominal pain (principal); Z85.048 Personal history of other malignant neoplasm of rectum, rectosigmoid junction, and anus
CPT/HCPCS: 36415; 74177; 80053; 83605; 83690; 85025; 93005; 96374; 96375; 99285; J2270; J2405; J7030; Q9967